=== PATIENT | female | born 1935 ===

== ENCOUNTER 2017-03-15 15:29 | Inpatient (IN) | payer OTHER ==
[~2017-03-15] VITALS: Ht 152.4 cm; Wt 53.0 kg
[~2017-03-15 15:29] MED LIST: ATORVASTATIN CA20 MG PO; CEFADROXIL500 MG; CEFADROXIL500 MG PO; DITROPAN XL5 MG PO; EFFEXOR XR150 MG PO; ENOXAPARIN30 MG/0.3; KEFLEX500 MG PO; KEPPRA500 MG PO; LOVENOX30 MG/0.3 SQ; MICARDIS80 MG; MICARDIS80 MG PO; PERCOCET 5/321 UDTAB PO; PERCOCET 5/3251 TAB PO; ROCEPHIN 22 G/50 ML IV; ULTRAM50 MG PO; URIN D.S. TABL1 EACH PO; URIN D.S. TABLE1 TAB PO; XARELTO10 MG PO; [UNRECOGNIZED DRUG - OTHER] PO
[2017-03-15] MEDS ORDERED: FOLIC ACID1 MG (16:49)
[2017-03-15] MEDS ORDERED: PEPCID40 MG (16:49)
[2017-03-15] MEDS ORDERED: XANAX1 MG (21:14)
== END 2017-04-03 17:24 | disposition other institution (70) | DRG 542 ==
LOC: ER 15:29 → ICU-2 21:46 → ICU 03-17 01:10 → MEDJ 03-20 14:30
PROC: 30233N1 Transfusion of Nonautologous Red Blood Cells into Peripheral Vein, Percutaneous Approach (ICD-10-PCS; principal; 2017-03-15)
PROC: CP1Z1ZZ Planar Nuclear Medicine Imaging of Musculoskeletal System, All using Technetium 99m (Tc-99m) (ICD-10-PCS; 2017-03-16)
PROC: BB24ZZZ Computerized Tomography (CT Scan) of Bilateral Lungs (ICD-10-PCS; 2017-03-18)
PROC: BW21ZZZ Computerized Tomography (CT Scan) of Abdomen and Pelvis (ICD-10-PCS; 2017-03-18)
PROC: 8E0ZXY6 Isolation (ICD-10-PCS; 2017-03-18)
PROC: 4A12X4Z Monitoring of Cardiac Electrical Activity, External Approach (ICD-10-PCS; 2017-03-20)
PROC: 3E0336Z Introduction of Nutritional Substance into Peripheral Vein, Percutaneous Approach (ICD-10-PCS; 2017-03-23)
PROC: 02HV33Z Insertion of Infusion Device into Superior Vena Cava, Percutaneous Approach (ICD-10-PCS; 2017-03-24)
DX: C79.51 Secondary malignant neoplasm of bone (principal); R57.1 Hypovolemic shock; G92 Toxic encephalopathy; G40.89 Other seizures; D62 Acute posthemorrhagic anemia; F23 Brief psychotic disorder; C78.02 Secondary malignant neoplasm of left lung; C78.01 Secondary malignant neoplasm of right lung; J98.11 Atelectasis; N39.0 Urinary tract infection, site not specified; R31.0 Gross hematuria; I10 Essential (primary) hypertension; B96.5 Pseudomonas (aeruginosa) (mallei) (pseudomallei) as the cause of diseases classified elsewhere; Z16.24 Resistance to multiple antibiotics; Z78.1 Physical restraint status; G89.3 Neoplasm related pain (acute) (chronic); Z66 Do not resuscitate; Z85.51 Personal history of malignant neoplasm of bladder; D63.0 Anemia in neoplastic disease; N93.8 Other specified abnormal uterine and vaginal bleeding